=== PATIENT | female | born 1985 | race African-American/Black ===

== ENCOUNTER 2018-02-21 07:15 | Day surgery (SDC) | payer BC ==
[2018-02-13 11:37] VITALS: BMI 36.3
[2018-02-21] MEDS ORDERED: DEXAMETHASONE SOD PHOSPHATE 4 MG/1 ML VIAL ONE ×2 (08:45→11:04)
[2018-02-21] MEDS ORDERED: ONDANSETRON 4 MG/2 ML VIAL ONE ×2 (08:45→11:04)
[2018-02-21] MEDS ORDERED: SODIUM CHLORIDE 0.9% P/F 10 ML VIAL IJ ONE ×2 (08:45→11:04)
[2018-02-21] MEDS ORDERED: ceFAZolin SODIUM 1 GM VIAL ONE ×2 (08:45→11:04)
[2018-02-21] MEDS ORDERED: PROPOFOL 20 ML ONE ×3 (08:46→11:00)
[2018-02-21] MEDS ORDERED: MIDAZOLAM HCL 2 MG/2 ML SINGLE DOSE VIAL ONE (09:54)
[2018-02-21] MEDS ORDERED: DEXAMETHASONE SOD PHOSPHATE/PF 10 MG/ML SDV ONE (09:54)
[2018-02-21] MEDS ORDERED: ROPIVACAINE HCL 0.5% 30ML VIAL ONE (09:54)
[2018-02-21] MEDS ORDERED: MEPIVACAINE HCL/PF 15 MG/ML ML ONE (09:54)
[2018-02-21] MEDS ORDERED: BUPIVACAINE HCL/EPINEPHRINE/PF 30 ML VIAL IJ ONE (10:19)
[2018-02-21] MEDS ORDERED: EPINEPHrine 1:1,000 1 MG/1 ML - 30ML VIAL (INJECTION) ONE (10:19)
[2018-02-21] MEDS ORDERED: BUPIVACAINE 0.25% /EPI 1:200,000 10 ML VIAL INF ONE (11:05)
[2018-02-21] MEDS ORDERED: KETOROLAC TROMETHAMINE 30 MG/1 ML VIAL ONE (11:05)
[2018-02-21] MEDS ORDERED: oxyCODONE HCL 10 MG SUSTAINED ACTING TABLET PO ONE (11:38)
[2018-02-21] MEDS ORDERED: oxyCODONE HCL 5 MG TABLET PO PRN (11:38)
--- NOTE | 2018-02-21 11:41 | DS ---
Physical Examination Vital Signs: Vital Signs Temperature 98.5 F 02/21/18 08:07 Pulse Rate 70 02/21/18 08:07 Respiratory Rate 16 02/21/18 08:07 Blood Pressure 142/93 02/21/18 08:07 O2 Sat by Pulse Oximetry (%) 96 02/21/18 08:12 Discharge Summary Reason For Visit: ROTATOR CUFF SYNDROME Condition: Good - Instructions Diet, Activity, Other Instructions: Post Operative Instructions: Shoulder Arthroscopy Dr Zain Joy 1. Pain following a Shoulder Arthroscopy is variable and can be significant. Some patients will have more pain than others. You have been provided with a prescription for medication that contains a narcotic. You are not allowed to drive while on this medication. You should NOT take Tylenol (Acetaminophen) when taking the pain medication ( it will result in an overdose). Feel free to take medications such as Ibuprofen or Naprosyn in addition to the pain medicine if you do not have any problems with the NSAID class of medications. 2. Apply ice to the shoulder for 15 minutes every hour. You may continue this for as many days as necessary. 3. You may find sleeping on an incline (reclining chair) to be more comfortable for the first few days. 4. You may remove your sling when the arm is comfortable. 5. You may use the arm as tolerated. 6. You may remove the bandages in 48 hours. You may shower at that point. 7. Place band-aids on the sutures after your shower.Do not put any creams or lotions on the incision until after the sutures are removed. 8. Please call the office to schedule a visit to have your sutures removed. 9. If for any reason you believe you may have an infection or are concerned, please feel free to call me. I can be reached through our office number 24 hours a day. 10. Please call our office with any questions; we will review the surgical findings during your post-operative visit. Disposition: HOME - Home Medications Comprehensive Discharge Medication List: Ambulatory Orders Doxycycline Hyclate 100 mg PO BID 02/13/18 Levocetirizine Dihydrochloride [Xyzal] 5 mg PO DAILY PRN 02/13/18 Naproxen [Naprosyn -] 500 mg PO BID PRN 02/13/18
--- NOTE | 2018-02-21 11:41 | OP ---
Operative Note - Note: Operative Date: 02/21/18 Pre-Operative Diagnosis: left shoulder pain Operation: left shoulder arthroscopy, debridement Post-Operative Diagnosis: Same as Pre-op Surgeon: Zain Joy Pediatric Physical Therapy Assistant: Yanci Farah Anesthesiologist/CHIEF CONCIERGE: Kuldip Yeh Anesthesia: General Operative Report Dictated: Yes
[2018-02-21 11:56] VITALS: TEMP 97.9
[2018-02-21] MEDS ORDERED: oxyCODONE HCL 10 MG SUSTAINED ACTING TABLET ONE (12:49)
[2018-02-21 13:19] VITALS: BP 142/88; PULSE 70
--- NOTE | 2018-02-21 16:08 | SURG ---
Surgery Ore Trimmer Note Ore Trimmer: Yanci Farah PA-C Date of Service: 02/21/18 Diagnosis: left shoulder pain Procedure: left shoulder arthroscopy, debridement I was present for the entirety of the operative procedure. For further detail, please refer to operative report. Visit type - Case Type Case Type: Scheduled - Emergency Emergency Visit: No - New patient This patient is new to me today: Yes Date on this admission: 02/21/18
== END 2018-02-21 13:10 | disposition home or self-care (01) ==
LOC: FASU 07:15
PROVIDERS: ATTEND Orthopaedic Surgery
PROC: 0RBK4ZZ Excision of Left Shoulder Joint, Percutaneous Endoscopic Approach (ICD-10-PCS; principal; 2018-02-21 09:30)
DX: M75.112 Incomplete rotator cuff tear or rupture of left shoulder, not specified as traumatic (principal); M25.512 Pain in left shoulder
CPT/HCPCS: 84703